=== PATIENT | female | born 1960 | race Caucasian/White ===

== ENCOUNTER 2020-05-25 23:25 | Day surgery (SDC) | payer OTHER ==
[~2020-05-25] VITALS: Ht 157.5 cm; Wt 72.0 kg
[2020-05-26] MEDS ORDERED: ESTR1TAB15 PO (00:09)
--- NOTE | 2020-05-26 00:35 | NUR ---
patient resting in bed in hospital gown. reports 8/10 pain in RUQ abdomen and "at times it radiates up into R chest" patient reports that "i self diagnosed myself through the internet and i have a friend who is a doctor that said he would order an US in the morning but to come to the ER if things got worse". Patient has a FLACC of 0. call [facility] in reach. safety maintained. patient was placed on heart monitoring as I noticed patient's HR was tachycardic. HR 100-110's
[2020-05-26 00:36] LABS: BASOPHILS % (AUTO) 0 % (0-1); EOSINOPHILS % (AUTO) 0 % (1-7); LYMPHOCYTES % (AUTO) 6 % (22-44); MEAN CORPUSCULAR HEMOGLOBIN 29.9 pg (27.0-34.8); MEAN CORPUSCULAR HGB CONC 34.3 g/dL (32.4-35.8); MEAN PLATELET VOLUME 8.6 fL (7.4-10.4); MONOCYTES % (AUTO) 5 % (2-9); NEUTROPHILS % (AUTO) 88 % (42-75); PLATELET COUNT 316 x10^3/uL (130-400); RED BLOOD COUNT 4.91 x10^6/uL (3.82-5.3); RED CELL DISTRIBUTION WIDTH 12.9 % (9.6-15.2)
[2020-05-26 00:40] LABS: MICROSCOPIC INDICATED
[2020-05-26 00:45] LABS: ALANINE AMINOTRANSFERASE 24 U/L (12-78); ALBUMIN 3.4 g/dL (3.4-5.0); ANION GAP 9 mmol/L (5-15); CHLORIDE 108 mmol/L (98-107); CREATININE 1.09 mg/dL (0.55-1.02)
[2020-05-26 00:47] LABS: ALKALINE PHOSPHATASE 96 U/L (45-117); BILIRUBIN,TOTAL 1.1 mg/dL (0.2-1.0); TOTAL PROTEIN 8.3 g/dL (6.4-8.2)
[2020-05-26 01:09] LABS: MD SCAN
--- NOTE | 2020-05-26 01:16 | NUR ---
patient resting in bed in NAD. Call [facility] in reach. at bedside.
[2020-05-26] MEDS ORDERED: ONDANSETRON 2MG/ML, 2ML IVPush ONE (01:30)
[2020-05-26] MEDS ORDERED: KETOROLAC 30 MG/1 ML IVPush ONE (01:30)
[2020-05-26] MEDS ORDERED: ONDANSETRON 2MG/ML, 2ML ONE ×3 (01:45→08:43)
[2020-05-26] MEDS ORDERED: KETOROLAC 30 MG/1 ML ONE ×2 (01:45→07:13)
--- NOTE | 2020-05-26 01:49 | NUR ---
patient in CT
[2020-05-26] MEDS ORDERED: OMNIPAQUE 350 MG/ML, 100ML BOTTLE ONE (02:43)
--- NOTE | 2020-05-26 02:52 | NUR ---
patient reports that pain has fully subsided after pain medications administered. remains at bedside. call [facility] in reach. safety maintained. will continue to monitor.
--- NOTE | 2020-05-26 03:59 | NUR ---
patient resting in bed with at bedside. in NAD. call [facility] in reach. safety maintained. waiting for re-eval from provider.
--- NOTE | 2020-05-26 04:46 | NUR ---
ambulatory to bathroom with steady gait.
[2020-05-26] MEDS ORDERED: CEFOTETAN PMX 1GM/50ML 50 ML IVPB ONE (05:00)
[2020-05-26] MEDS ORDERED: BUPIVACAINE/PF 0.5% ONE (05:21)
[2020-05-26] MEDS ORDERED: EPINEPHRINE 1 MG/ML, 1ML ONE (05:21)
[2020-05-26] MEDS ORDERED: SODIUM CHLORIDE 0.9% 1,000 ML IV ONE (05:30)
[2020-05-26] MEDS ORDERED: MORPHINE SULFATE 4 MG/ML, 1ML IVPush PRN (05:30)
[2020-05-26] MEDS ORDERED: ONDANSETRON 2MG/ML, 2ML IVPush PRN ×2 (05:30→07:00)
[2020-05-26 05:48] LABS: HCG UR SG 1.025 (1.003-1.030)
--- NOTE | 2020-05-26 05:52 | NUR ---
Report givent to FATUMA Vaca. Patient to be transferred to room 455.
--- NOTE | 2020-05-26 05:53 | NUR ---
report given to Nola BURRIS
[2020-05-26] MEDS ORDERED: LIDOCAINE-MPF 2% ,5ML ONE (06:50)
[2020-05-26] MEDS ORDERED: MIDAZOLAM 1 MG/ML, 2ML ONE (06:52)
[2020-05-26] MEDS ORDERED: FENTANYL PF 100 MCG/2ML ONE ×3 (06:52→08:38)
[2020-05-26] MEDS ORDERED: CEFOTETAN 1 GM ONE (06:55)
[2020-05-26] MEDS ORDERED: PROPOFOL 10 MG/ML, 20ML ONE (06:55)
[2020-05-26] MEDS ORDERED: SUCCINYLCHOLINE 20 MG/ML, 10ML ONE (06:55)
[2020-05-26] MEDS ORDERED: DEXAMETHASONE 4 MG/ML, 1ML ONE (06:55)
[2020-05-26] MEDS ORDERED: ROCURONIUM 10MG/ML,5ML ONE (06:55)
[2020-05-26] MEDS ORDERED: LABETALOL 5MG/ML, 20ML IV PRN (07:00)
[2020-05-26] MEDS ORDERED: hydrALAzine 20 MG/ML, 1ML IV PRN (07:00)
[2020-05-26] MEDS ORDERED: EPHEDRINE 50 MG/ML, 1ML IVPush PRN (07:00)
[2020-05-26] MEDS ORDERED: PROMETHAZINE 25 MG/ML, 1ML IVPush PRN (07:00)
[2020-05-26] MEDS ORDERED: ACETAMINOPHEN 325 MG TABLET PO PRN (07:00)
[2020-05-26] MEDS ORDERED: HYDROmorphone 1 MG/ML, 1ML INJ IVPush PRN (07:00)
[2020-05-26] MEDS ORDERED: FENTANYL PF 100 MCG/2ML IV PRN (07:00)
[2020-05-26] MEDS ORDERED: OXYcodone 5 MG/5 ML ORAL.SOL UDC PO PRN (07:00)
[2020-05-26] MEDS ORDERED: SUGAMMADEX 200 MG/2 ML IVPush ONE (07:13)
[2020-05-26] MEDS ORDERED: BUPIVACAINE/PF-EPI 0.5% 1:200K INFIL ONE (07:21)
[2020-05-26] MEDS ORDERED: OXYC-302 PO (08:13)
[2020-05-26] MEDS ORDERED: OXYcodone 5 MG/5 ML ORAL.SOL UDC ONE (08:38)
[2020-05-26] MEDS ORDERED: ACETAMINOPHEN 650 MG/20.3 ML UDC ONE (08:38)
[2020-05-26 09:45] VITALS: BP 116/79
[2020-05-26] MEDS ORDERED: MORPHINE SULFATE 4 MG/ML, 1ML IV PRN (10:00)
[2020-05-26] MEDS ORDERED: OXYcodone/APAP 5/325MG TABLET PO PRN (10:00)
[2020-05-26] MEDS ORDERED: LACTATED RINGERS 1,000 ML IV SCH (10:00)
[2020-05-26 14:00] VITALS: BP 127/82
[2020-05-26] MEDS ORDERED: ONDANSETRON 2MG/ML, 2ML IV PRN (14:45)
== END 2020-05-26 15:23 | disposition home or self-care (01) ==
LOC: ED 05-26 01:33 → OUT 05-26 06:06 → EDIP 05-26 06:06 → UNDOADMIN 05-26 06:06 → 4NE 05-26 06:17 → EDIP 05-26 06:17 → DCLOUNGE 05-26 15:16 → 4NE 05-26 15:16 → UNDODISIN 05-26 15:23 → OUT 05-26 15:23
PROVIDERS: ATTEND Surgery
DX: K80.12 Calculus of gallbladder with acute and chronic cholecystitis without obstruction (principal); K82.8 Other specified diseases of gallbladder; Z20.822 Contact with and (suspected) exposure to COVID-19; Z79.3 Long term (current) use of hormonal contraceptives; Z88.1 Allergy status to other antibiotic agents; Z88.2 Allergy status to sulfonamides; Z90.49 Acquired absence of other specified parts of digestive tract; Z90.710 Acquired absence of both cervix and uterus; Z98.890 Other specified postprocedural states
CPT/HCPCS: 36415; 47562; 74177; 76700; 80053; 81001; 81025; 83690; 85025; 87086; 87635; 88304; 99285; J0171; J0330; J1100; J1885; J2250; J2405; J2704; J3010; J7120; Q9967